=== PATIENT | male | born 1990 | race Caucasian/White ===

== ENCOUNTER 2018-09-30 09:00 | Emergency (ER) | payer MEDICAID ==
[~2018-09-30] VITALS: Ht 188 cm; Wt 58.7 kg
[~2018-09-30 09:00] MED LIST: CYCL-394 PO; IBUP-1051 PO
[2018-09-30 09:08] VITALS: BP 109/79
== END 2018-09-30 11:24 | disposition home or self-care (01) ==
LOC: ER 09:01
DX: M79.644 Pain in right finger(s) (principal); M79.641 Pain in right hand
CPT/HCPCS: 29125; 73130; 99284